=== PATIENT | male | born 1960 | race Caucasian/White ===

== ENCOUNTER 2021-05-24 08:48 | Day surgery (SDC) | payer MEDICAID, SELFPAY ==
[~2021-05-24] VITALS: Ht 177.8 cm; Wt 87.5 kg
[2021-05-24] MEDS ORDERED: MEPERIDINE 100 MG INJ. 100 MG/ML VIAL ONE (09:21)
[2021-05-24] MEDS ORDERED: MIDAZOLAM HCL 5 MG/5 ML VIAL ONE ×2 (09:21→10:59)
[2021-05-24 15:40] VITALS: BP_SYST 145
== END 2021-05-24 13:05 | disposition home or self-care (01) ==
LOC: SDS 08:48 → SMU 08:49 → SDS 13:05
PROVIDERS: ATTEND Internal Medicine Gastroenterology
DX: Z12.11 Encounter for screening for malignant neoplasm of colon (principal); D12.3 Benign neoplasm of transverse colon; D12.8 Benign neoplasm of rectum; I25.10 Atherosclerotic heart disease of native coronary artery without angina pectoris; K64.8 Other hemorrhoids; I11.0 Hypertensive heart disease with heart failure; I50.9 Heart failure, unspecified; B19.20 Unspecified viral hepatitis C without hepatic coma; Z79.899 Other long term (current) drug therapy; Z20.822 Contact with and (suspected) exposure to COVID-19
CPT/HCPCS: 36415; 45381; 45385; 87426; 88305; 99152; 99153; G0378; J2175; J2250; U0003; 45384